=== PATIENT | female | born 2000 | race Hispanic/Latino ===

== ENCOUNTER 2021-03-30 23:09 | Emergency (ER) | payer SELFPAY ==
[~2021-03-30] VITALS: Ht 152.4 cm; Wt 60.8 kg
[2021-03-31] MEDS ORDERED: HYDROMORPHONE 1 MG INJ IVP ONE
[2021-03-31] MEDS ORDERED: KETOROLAC 30MG VIAL (30MG/ML) IV ONE
[2021-03-31] MEDS ORDERED: LORAZEPAM 2 MG/ML 1 ML VIAL IVP ONE
[2021-03-31 01:00] VITALS: BP 124/70
[2021-03-31] MEDS ORDERED: METH-662 PO (01:02)
== END 2021-03-31 02:00 | disposition home or self-care (01) ==
LOC: EDH 23:09
DX: M54.5 Low back pain (principal); Z79.1 Long term (current) use of non-steroidal anti-inflammatories (NSAID); Z79.899 Other long term (current) drug therapy
CPT/HCPCS: 72100; 96374; 96375; 99284; J1170; J1885; J2060